=== PATIENT | female | born 1960 | race Caucasian/White ===

== ENCOUNTER 2024-07-01 15:33 | Emergency (ER) | payer BC, SELFPAY ==
[2024-07-01 15:37] VITALS: BP 146/96; PULSE 80; TEMP 36.8; O2SAT 96
--- NOTE | 2024-07-01 15:46 | ED.SKABFB1 ---
HPI - Skin/Abscess/Foreign Bdy General Chief complaint: Skin/Abscess/Foreign Body Stated complaint: RASH ON HANDS AND FACE Time Seen by Provider: 07/01/24 15:42 Mode of arrival: walk-in History of Present Illness HPI narrative: 64 year old female presents to the ED for an itchy rash to her lower face, right wrist, and base of right thumb. Onset was 2 weeks ago. States she was given a prescription for Bactroban by her pcp. States she used the ointment with no improvement. Denies fever, chills, SOB, difficulty swallowing. Denies pain to the rash areas. Related Data Previous Rx's ?Medication ?Instructions ?Recorded prednisone 10 mg tablet See Rx Instructions .Route 07/01/24 .COMPLEX #30 tabs triamcinolone acetonide 0.1 % 1 applic topical DAILY #15 grams 07/01/24 topical cream Allergies Allergy/AdvReac Type Severity Reaction Status Date / Time No Known Drug Allergies Allergy Verified 07/01/24 15:37 Review of Systems ROS Constitutional Denies: fever, chills or fatigue Ears, nose, mouth, and throat Denies: throat pain Cardiovascular Denies: chest pain Respiratory Denies: shortness of breath Integumentary/Breast Reports: rash Neurological Denies: headache PFSH PFSH Social History Little interest or pleasure in doing things: not at all Feeling down, depressed, or hopeless: not at all Exam Constitutional Vital Signs, click to edit/add: Last Vital Signs Temp 98.2 F 07/01/24 15:37 Pulse 80 07/01/24 15:37 Resp 18 07/01/24 15:37 BP 146/96 H 07/01/24 15:37 Pulse Ox 96 07/01/24 15:37 O2 Del Method Room Air 07/01/24 15:37 Common normals: no apparent distress and oriented x3 General appearance: cooperative HENMT Common normals: moist oral mucous membranes Mouth: lip normal Other: Areas of erythema, irritation noted below nose and above upper lip. Eye Common normals: conjunctivae normal and no scleral icterus Neck & C-Spine Common normals: supple Extremity Other: Two rash areas to right arm; one to wrist and one to base of thumb. Areas round, dry, dark red. No outer darker rim. No bullseye. No yellow crusts or purulent drainage. Neuro Common normals: oriented x3 and moves all extremities Sensorium/orientation: awake and alert Speech: speech normal Course Vital Signs Vital signs: Vital Signs Temperature 98.2 F 07/01/24 15:37 Pulse Rate 80 07/01/24 15:37 Respiratory Rate 18 07/01/24 15:37 Blood Pressure 146/96 H 07/01/24 15:37 Pulse Oximetry 96 07/01/24 15:37 Oxygen Delivery Method Room Air 07/01/24 15:37 Temperature 98.2 F 07/01/24 15:37 Pulse Rate 80 07/01/24 15:37 Respiratory Rate 18 07/01/24 15:37 Blood Pressure 146/96 H 07/01/24 15:37 Pulse Oximetry 96 07/01/24 15:37 Oxygen Delivery Method Room Air 07/01/24 15:37 MDM - Skin/Abscess/Foreign Bdy MDM Narrative Medical decision making narrative: The patient reported no improvement with Bactroban. Prescriptions were provided for prednisone and Kenalog cream at the recommendation of the ED attending. Follow up with pcp for a recheck, further evaluation and treatment. Discharge Plan Discharge Chief Complaint: Skin/Abscess/Foreign Body Clinical Impression: Rash Patient Disposition: Home, Self-Care Time of Disposition Decision: 15:54 Condition: Good Mode of Transportation: Private Vehicle Prescriptions / Home Meds: New prednisone 10 mg tablet See Rx Instructions .ROUTE .COMPLEX Qty: 30 0RF Rx Instructions: Take 5 tablets on days 1-2, 4 tabs on days 3-4, 3 tabs on days 5-6, 2 tabs on days 7-8, 1 tab on days 9-10. triamcinolone acetonide 0.1 % cream 1 applic topical DAILY Qty: 15 0RF Rx Instructions: DO NOT APPLY TO FACE. Apply to rash area on arm. Print Language: Turkmen Instructions: Acute Rash (ED) Referrals: Physician,Non-Staff, MD [Primary Care Provider] - 1 week Discharge Date/Time: 07/01/24 16:03
== END 2024-07-01 16:03 | disposition home or self-care (01) ==
PROVIDERS: Emergency Provider Emergency Medicine
DX: R21 Rash and other nonspecific skin eruption (principal)
CPT/HCPCS: 99283